=== PATIENT | female | born 1985 | race Caucasian/White ===

== ENCOUNTER 2017-11-26 19:58 | Inpatient (IN) | payer BC ==
[~2017-11-26 19:58] MED LIST: Bupivacaine/Epinephrine 0.25% 30 ML VIAL ONE
[2017-11-26] MEDS ORDERED: Lidocaine 1% (PF) 30 ML VIAL SC PRN (21:23)
[2017-11-26] MEDS ORDERED: Acetaminophen 500 MG TAB PO PRN (21:23)
[2017-11-26] MEDS ORDERED: Ondansetron HCl/PF 4 MG/2 ML Vial IVP PRN (21:23)
[2017-11-26] MEDS ORDERED: Ibuprofen 800 MG TAB PO PRN (21:23)
[2017-11-26] MEDS ORDERED: NS / Oxytocin 40 units/1000ml 1,000 ML IV PRN (21:23)
[2017-11-26] MEDS ORDERED: Butorphanol Tartrate 1 MG/ML VIAL SLOW IVP PRN (21:23)
[2017-11-26] MEDS ORDERED: HYDROcodone/Acetaminophen 5/325 mg Tablet PO PRN ×2 (21:23)
[2017-11-26] MEDS ORDERED: Promethazine HCl 25 MG/ML VIAL IM PRN (21:23)
--- NOTE | 2017-11-26 21:29 | PDOC.LDHP ---
Labor and Delivery H&P Chief complaint: contractions HPI: 32 yo WF presents c/o UCs since earlier today. Denies SROM, bleeding. Current gestational age (weeks): 39 Due date: 11/30/17 Dating criteria: first trimester ultrasound Grav: 2 Para: 1 OB History Details: PNC with Dr. Barnes. On Zoloft 25 mg for anxiety. h/o at term x 1. Current complications: other Abnormal US findings: No Past Medical History: none Previous surgical history: other (hernia, breast augmentation) Allergies/Adverse Reactions: Allergies Allergy/AdvReac Type Severity Reaction Status Date / Time No Known Drug Allergies Allergy Mild Verified 11/26/17 21:03 Social history: none - Physical Exam Vital signs reviewed and normal: yes General: NAD, breathing through contractions Heart: RRR Lungs: CTAB Abdomen: gravid Extremeties: trace edema FHT: variability present Dermott contractions every: q 4-5 mins. - Vaginal Exam cm dilated: 4 Effacement: 75% Station: -1 - OB Labs Blood type: A RH: positive Antibody Screen: negative HIV: negative RPR: negative HEPSAg: negative 1 hour GCT: negative GBS: positive Rubella: immune - Assessment L&D Assessment: term patient in labor - Plan Plan: admit to L&D, GBS antibiotic prophylaxis, anesthesia consult for pain management
[2017-11-26] MEDS ORDERED: Penicillin G Potassium 5 MILL.UNITS in Sodium Chloride 0.9% 100 ML IVPB SCH (21:30)
[2017-11-26] MEDS ORDERED: Lactated Ringer's 1,000 ML IV SCH (21:30)
[2017-11-26] MEDS ORDERED: NS w/ Oxytocin 10 units 500 ML IV SCH (21:30)
[2017-11-26 22:18] LABS: Hemoglobin 13.4 g/dL (12.0-16.0); Mean Corpuscular HGB CONC 34.3 g/dL (32.0-36.0); Mean Corpuscular Hemoglobin 33.2 pg (27.0-31.0); Mean Corpuscular Volume 96.8 fl (81.0-99.0); Mean Platelet Volume 8.3 fL (7.4-10.4); Platelet Count 162 thou/uL (130-400); RBC Distribution Width 11.7 % (11.5-14.5); Red Blood Cell (RBC) Count 4.03 mill/uL (4.20-5.40); White Blood Cell (WBC) Count 12.2 thou/uL (4.8-10.8)
[2017-11-26] MEDS: Lactated Ringer's 1,000 ML IV SCH (22:28)
[2017-11-26 23:00] LABS: Syphilis Antibody Nonreactive (Nonreactive); Syphilis Antibody Index 0.05 S/CO (<1.00 Non-Reactive)
[2017-11-26] MEDS ORDERED: Bupivacaine 0.5% 20 ML, fentaNYL Citrate/PF 400 MCG in Sodium Chloride 0.9% 72 ML EPIDURAL SCH (23:00)
[2017-11-26 23:30] LABS: HBSAg Index 0.28 S/CO (0-0.99); Hep B Surf Ag Non-Reactive S/CO (NonReactive)
[2017-11-27] MEDS ORDERED: Ondansetron HCl/PF 4 MG/2 ML Vial IVP PRN (01:20)
[2017-11-27] MEDS ORDERED: diphenhydrAMINE 50 MG/ML VIAL IVP PRN (01:20)
[2017-11-27] MEDS ORDERED: Naloxone HCl 0.4 mg/ml Vial IVP PRN ×2 (01:20)
[2017-11-27] MEDS ORDERED: Lactated Ringer's 500 ML IV PRN (01:20)
[2017-11-27] MEDS ORDERED: Hydrocerin (Eucerin) Cream 120 gm Jar TOP PRN (01:20)
[2017-11-27] MEDS ORDERED: Acetaminophen 325 MG TAB PO PRN (01:20)
[2017-11-27] MEDS ORDERED: ePHEDrine/0.9% NaCl/PF SYRINGE 50 mg/10 ml SLOW IVP PRN (01:20)
[2017-11-27] MEDS ORDERED: Promethazine HCl 25 MG/ML VIAL IM PRN (01:20)
[2017-11-27] MEDS ORDERED: Fentanyl 4mcg/Marcaine 0.1% Cassette 100 ML EPIDURAL SCH (01:30)
[2017-11-27] MEDS ORDERED: Communication Order-Pharmacy FS SCH (01:30)
[2017-11-27] MEDS: Penicillin G 2.5 MILL.units 2.5 MILL.UNITS in Premix Bag 1 BAG IVPB SCH ×2 (02:07→02:27)
[2017-11-27] MEDS: Lactated Ringer's 1,000 ML IV SCH (02:07)
--- NOTE | 2017-11-27 02:55 | PDOC.EVN ---
Event Note - Event Note Event Note: Comfortable with epidural. SVE= 7/80/0 vtx. FHTs stable. UCs q 2-3 mins. AROM- clear. Watch progress. Augment if needed.
--- NOTE | 2017-11-27 03:10 | PDOC.EVN ---
Event Note - Event Note Event Note: Decel to 80's. SVE remains &cm, no cord noted. Scalp clip placed. Fluid bolus given. Fhts with resolution to 120s. Observe closely.
--- NOTE | 2017-11-27 04:05 | PDOC.OPDEL ---
OB Operative/Delivery Note Delivery Dr/Surgeon: Jens Pre-Delivery Diagnosis: active labor Procedure/Post Delivery Dx: spontaneous vaginal delivery Weeks gestation: 39 Anesthesia: epidural - Additional Findings/Plan Placenta delivered: spontaneous Repaired Obstetrical Laceration: none Estimated blood loss: 200 cc Compilations/Other Findings: Viable male OA over intact perineum Apgars 8/9. Mom to recover in LDR Post delivery plan: routine recovery
[2017-11-27] MEDS ORDERED: Preparation H Ointment 28 GM TUBE PR PRN (07:14)
[2017-11-27] MEDS ORDERED: diphenhydrAMINE 25 MG CAP PO PRN (07:14)
[2017-11-27] MEDS ORDERED: NS / Oxytocin 40 units/1000ml 1,000 ML IV SCH (07:14)
[2017-11-27] MEDS ORDERED: Adacel (T-DAP) 0.5 ML VIAL IM ONE (07:14)
[2017-11-27] MEDS ORDERED: HYDROcodone/Acetaminophen 5/325 mg Tablet PO PRN ×2 (07:14)
[2017-11-27] MEDS ORDERED: Bisacodyl 10 MG SUPP PR PRN (07:14)
[2017-11-27] MEDS ORDERED: Ibuprofen 800 MG TAB PO SCH (07:14)
[2017-11-27] MEDS ORDERED: Milk Of Magnesia 30 ML UDCUP PO PRN (07:14)
[2017-11-27] MEDS: Ferrous Sulfate 325 MG TAB PO SCH ×2 (08:46→17:27)
[2017-11-27] MEDS: Prenatal Vitamin 1 TAB PO SCH (09:00)
[2017-11-27] MEDS: Docusate Calcium (SURFAK) 240 MG CAP PO SCH ×2 (09:00→22:16)
[2017-11-27] MEDS: Ibuprofen 800 MG TAB PO SCH ×2 (13:59→22:16)
[2017-11-28 05:10] LABS: Hemoglobin 12.6 g/dL (12.0-16.0); Mean Corpuscular HGB CONC 34.3 g/dL (32.0-36.0); Mean Corpuscular Hemoglobin 33.3 pg (27.0-31.0); Mean Platelet Volume 7.6 fL (7.4-10.4); Platelet Count 140 thou/uL (130-400); RBC Distribution Width 11.9 % (11.5-14.5); Red Blood Cell (RBC) Count 3.77 mill/uL (4.20-5.40); White Blood Cell (WBC) Count 10.7 thou/uL (4.8-10.8)
[2017-11-28] MEDS: Ibuprofen 800 MG TAB PO SCH ×2 (06:32→13:31)
--- NOTE | 2017-11-28 08:02 | DIS ---
ADMITTING DIAGNOSES: 1. Intrauterine at 39 weeks. 2. Active labor. DISCHARGE DIAGNOSES: 1. Intrauterine at 39 weeks. 2. Active labor. PROCEDURE: Term spontaneous vaginal delivery. HOSPITAL COURSE: The patient is a 32-year-old G2, now P2 female who presented at 39 weeks in active labor. She was admitted and subsequently had a term spontaneous vaginal delivery and after recovery was sent to for continued care. She is now day #1. She is tolerating p.o., vo iding on her own, having decreased lochia and good pain control. The patient has expressed desire to discharge home. PHYSICAL EXAMINATION: VITAL SIGNS: Today temperature 98.4, pulse of 67, respiratory rate of 18, blood pressure 106/72. GENERAL: She appears to be in no acute distress. She is alert and oriented, cooperative and pleasan t to interact with. HEENT: Normocephalic, atraumatic. ABDOMEN: Fundus is firm. EXTREMITIES: Nontender, nonedematous. Her post-delivery hemoglobin is 12.6, hematocrit 36.6, platelets of 140,000. The patient is being discharged to home on ibuprofen [id number] as needed for pain control. Irma angelia has instructions to follow up with Dr. Barnes in 6 weeks for routine visit. She has bee n given instructions to seek medical attention sooner if she experiences fever, increasing pain or bl eeding.
[2017-11-28] MEDS: Docusate Calcium (SURFAK) 240 MG CAP PO SCH (08:36)
[2017-11-28] MEDS: Prenatal Vitamin 1 TAB PO SCH (08:36)
[2017-11-28] MEDS: Ferrous Sulfate 325 MG TAB PO SCH ×2 (08:36→16:57)
[2017-11-28 10:59] VITALS: BP 116/77; TEMP 96.6
== END 2017-11-28 17:42 | disposition home or self-care (01) | DRG 775 ==
LOC: L&D/OP 19:58 → L&D 21:20 → 3SW 11-27 11:55
PROVIDERS: ADMIT Obstetrics & Gynecology; ATTEND Obstetrics & Gynecology
PROC: 10E0XZZ Delivery of Products of Conception, External Approach (ICD-10-PCS; principal; 2017-11-27)
PROC: 10907ZC Drainage of Amniotic Fluid, Therapeutic from Products of Conception, Via Natural or Artificial Opening (ICD-10-PCS; 2017-11-27)
DX: O99.824 Streptococcus B carrier state complicating childbirth (principal); Z3A.39 39 weeks gestation of pregnancy; Z37.0 Single live birth
CPT/HCPCS: 36415; 51702; 85027; 86780; 86850; 86900; 86901; 87340; 99285; J2001; J2540; J3010; J3490; J7050

== ENCOUNTER 2021-05-15 17:30 | Outpatient (CLI) | payer BC | END 2021-05-15 17:31 | disposition home or self-care (01) | LOC: SLEEPLAB 17:30 | PROVIDERS: ATTEND Physician Assistant | DX: G47.33 Obstructive sleep apnea (adult) (pediatric) (principal); R53.83 Other fatigue; R06.83 Snoring; F41.8 Other specified anxiety disorders | CPT/HCPCS: 95806 ==

== ENCOUNTER 2021-06-18 15:47 | Outpatient (CLI) | payer BC ==
[2021-06-18 18:03] LABS: BHCG - Serum Negative (NEGATIVE); Pregs Control Background? CLEAR/WHITE (CLR/WHITE); Pregs Control Bar Appear? YES (CONTROL BAR)
[2021-06-19 03:01] LABS: SARS-CoV-2 PCR by NAA Not Detected (NotDetected)
== END 2021-06-18 15:48 | disposition home or self-care (01) ==
LOC: LABBT 15:47
PROVIDERS: ATTEND Specialist
DX: Z01.812 Encounter for preprocedural laboratory examination (principal); J35.1 Hypertrophy of tonsils; J34.3 Hypertrophy of nasal turbinates; J34.2 Deviated nasal septum; G47.33 Obstructive sleep apnea (adult) (pediatric); R06.83 Snoring; G47.19 Other hypersomnia; Z20.822 Contact with and (suspected) exposure to COVID-19
CPT/HCPCS: 84703; 85014; U0003; U0005